=== PATIENT | male | born 1990 | race Two or more races ===

== ENCOUNTER 2024-07-03 14:11 | Emergency (ER) | payer SELFPAY ==
[~2024-07-03] VITALS: Ht 172.7 cm; Wt 84.0 kg
[2024-07-03 15:41] LABS: Basophils # (auto) 0 10 ^3/uL (0-0.2); Basophils % (auto) 0.5 % (0.0-2.0); Eosinophils # (auto) 0 10 ^3/uL (0-0.8); Eosinophils % (auto) 0.3 % (0.0-7.0); Hematocrit 47.6 % (41.0-53.0); Lymphocytes # (auto) 1.5 10 ^3/uL (0.4-5.4); Lymphocytes % (auto) 26.6 % (10.0-50.0); Mean Corpuscular Hemoglobin 30.7 pg (28.0-32.0); Mean Corpuscular Hgb Conc. 33.6 g/dL (32.0-36.0); Mean Corpuscular Volume 91.4 fL (80.0-100.0); Monocytes # (auto) 0.4 10 ^3/uL (0-1.3); Neutrophils # (auto) 3.7 10 ^3/uL (1.6-8.6); Neutrophils % (auto) 65.6 % (37.0-80.0); Platelet Count (auto) 186 10^3/uL (140-450); Red Blood Cells 5.21 10^6/uL (4.5-5.90); Red Cell Distribution Width 13.3 % (11.8-14.3); White Blood Cell 5.6 10^3/uL (4.4-10.8)
[2024-07-03 16:01] LABS: Alanine Aminotransferase 24 U/L (7-40); Albumin 4.9 g/dL (3.2-4.8); Alkaline Phosphatase 57 U/L (46-116); Anion Gap 6 (5-15); Aspartate Aminotransferase 21 U/L (13-40); BUN/Creatinine Ratio 7.9 (10.0-20.0); Blood Urea Nitrogen 8 mg/dL (9-23); Calcium 10.1 mg/dL (8.7-10.4); Carbon Dioxide 28 mmol/L (20-30); Chloride 108 mmol/L (98-107); Glucose 96 mg/dL (74-106); Potassium 3.8 mmol/L (3.5-5.1); Sodium 142 mmol/L (136-145)
[2024-07-03 16:02] LABS: Bilirubin, Total 0.7 mg/dL (0.2-1.0); Total Protein 7.5 g/dL (5.7-8.2)
[2024-07-03] MEDS: ONDANSETRON ODT 4 MG TAB PO ONE (16:51)
[2024-07-03] MEDS: MAALOX PLUS or MAALOX 30 ML PO ONE (16:51)
[2024-07-03 17:30] VITALS: PULSE 63; RESP 20; O2SAT 96
[2024-07-03] MEDS ORDERED: HYDR-4902 PO ×2 (17:45→18:08)
[2024-07-03] MEDS ORDERED: ZOFR4T PO ×2 (17:45→18:08)
[2024-07-03 18:16] VITALS: BP 121/90; PULSE 63; RESP 18; TEMP 98.1; O2SAT 98
[2024-07-03 19:30] LABS: Amphetamine Screen, Urine Neg (NEGATIVE); Barbiturate Scree,Urine Neg (NEGATIVE); Benzodiazephine Screen, Urine Neg (NEGATIVE); Cannabinoid Screen, Urine Pos (NEGATIVE); Cocaine Screen, Urine Neg (NEGATIVE); Phencyclidine Screen, Urine Neg (NEGATIVE)
[2024-07-03 19:34] LABS: Opiate Scree,Urine Neg (NEGATIVE)
== END 2024-07-03 18:19 | disposition home or self-care (01) ==
LOC: ER 14:11
DX: K85.90 Acute pancreatitis without necrosis or infection, unspecified (principal); F12.10 Cannabis abuse, uncomplicated; Z79.899 Other long term (current) drug therapy
CPT/HCPCS: 36415; 76705; 80053; 80307; 83690; 84484; 85025; 93005; 99285; Q0162